=== PATIENT | male | born 1985 | race Hispanic/Latino ===

== ENCOUNTER 2018-08-23 23:36 | Emergency (ER) | payer SELFPAY ==
[2018-08-23 23:40] VITALS: BP 149/101; PULSE 79; RESP 16; TEMP 36.1; O2SAT 98; BMI 32.0
--- NOTE | 2018-08-24 00:12 | ED_ITS ---
HPI - URI/Sore Throat General Chief Complaint: Upper Respiratory Symptoms Stated Complaint: Chest pain Time Seen by Provider: 08/24/18 00:11 Source: patient and family Mode of arrival: ambulatory Limitations: language barrier History of Present Illness HPI Narrative: Patient is a 33-year-old male. He does understand [place] and can speak some words however not completely fluent. He is with his cousin who provided translation services. They were both comfortable with this arrangement of conversation. It appears that the patient has been having chest pain and shortness of breath for the past 2 weeks. He has seen his primary provider who prescribed him an albuterol inhaler. He stated that the inhaler has helped somewhat but not completely. He returns today because he has continued symptoms. Related Data Previous Rx's Medication Instructions Recorded lorazepam [Ativan] 0.5 mg PO BEDTIME PRN #7 tab 08/24/18 prednisone 20 mg PO DAILY 5 Days #5 tab 08/24/18 Allergies Allergy/AdvReac Type Severity Reaction Status Date / Time No Known Drug Allergies Allergy Verified 08/23/18 23:47 Review of Systems Constitutional Denies fever(s) Cardiovascular Reports chest pain and Reports dyspnea Respiratory Reports dyspnea and Denies wheezing Gastrointestinal Gastrointestinal: Denies abdominal pain, Denies nausea and Denies vomiting Musculoskeletal Denies myalgias and Denies arthralgias Integumentary/Breasts Denies rash Hematologic/Lymphatic Denies easy bleeding and Denies easy bruising Allergic/Immunologic Denies wheezing [facility] Medical History Patient denies medical problems (Acute) Surgical History No pertinent past surgical history (Acute) Social History Smoking Status: Never smoker Social History Smoking Status: Never smoker Exam Initial Vital Signs Initial Vital Signs: Vital Signs Temperature 97.0 F L 08/23/18 23:40 Pulse Rate 79 08/23/18 23:40 Respiratory Rate 16 08/23/18 23:40 Blood Pressure 149/101 H 08/23/18 23:40 Pulse Oximetry 98 08/23/18 23:40 Const General: cooperative, comfortable, well developed and No acute distress Orientation: alert and awake [facility] Head: normal to inspection and normocephalic Resp Effort & Inspection: normal respiratory effort Auscultation: clear to auscultation bilaterally Cardio Rate: regular rate Rhythm: regular rhythm Pulses: radial pulses present GI Inspection: non-distended Palpation: soft, No firm and No tender Skin Lesions: no lesions Rashes: no rashes Neuro General: alert and awake Cognition: normal cognition Speech: speech normal Extrem General: normal to inspection and capillary refill normal Psych Appearance: grossly normal and well kempt Course Orders Ordered: ED Orders 08/24/18 00:16 XR chest 2V Stat Discontinued Medications Lorazepam (Ativan) 0.5 mg PO NOW ONE Stop: 08/24/18 01:32 Last Admin: 08/24/18 01:41 Dose: 0.5 mg Vital Signs - 8 hr 08/23/18 23:40 08/24/18 01:49 Temperature 97.0 F L 97.8 F Pulse Rate 79 77 Respiratory Rate 16 18 Blood Pressure 149/101 H 130/86 Pulse Oximetry 98 96 MDM - URI/Sore Throat Imaging Data Chest x-ray: Attestation: I personally reviewed and interpreted this imaging study as follows: My impression: Normal size heart No pneumothorax, no pneumonia MDM Narrative Medical decision making narrative: Patient is not in any respiratory distress. Chest x-ray is unremarkable. Had a discussion with the patient and his cousin. His cousin stated that all of his symptoms started 2 weeks ago. His cousin thinks that his symptoms are a psychological issue. He states the patient has been having problems sleeping recently. All this seems to have started when they found out a good friend of theirs went to [place] and then ?disappeared ?the patient's cousin stated that he thinks that the patient is very concerned about his friend that is what's causing his chest issues and also is sleeping issues. They did ask for medicine to help with this. He was given Ativan here in the emergency department. Will send home with a small prescription for this. Also sent home with prescription for prednisone. Will hold on further workup for now. I the patient follow up with his primary provider. They both expressed understanding and agreement this plan. Discharge Plan Departure Patient Disposition: Home Clinical Impression: Cough, Atypical chest pain Discharge Date/Time: 08/24/18 01:50 Interventions: ED Discharge Assessment Last Done: 08/24/18 01:49 Instructions: Cough Activity Restrictions/Additional Instructions: Recommend you take all other medications as directed. On Saturday contact your primary doctor for a follow-up. Return to the emergency department for any new or worsening symptoms Prescriptions: New prednisone 20 mg tablet 20 mg PO DAILY 5 Days Qty: 5 RF: 0 lorazepam [Ativan] 1 mg tablet 0.5 mg PO BEDTIME PRN (Reason: sleep) Qty: 7 RF: 0
--- NOTE | 2018-08-24 00:16 | DI.RAD.S_ITS ---
PROCEDURE: XR CHEST 2V INDICATIONS: Chest pain TECHNIQUE: 2 views of the chest were acquired. COMPARISON: None. FINDINGS: Surgical changes and devices: None. Lungs and pleura: No focal infiltrates are seen. Apparent calcified granulomas can be seen. No pleural effusions or pneumothorax. Mediastinum: Mediastinal contours are normal. Heart size is normal. Bones and chest wall: No suspicious bony abnormalities. Soft tissues appear unremarkable. IMPRESSION: No acute cardiopulmonary process is seen. Note: No significant discrepancy from the preliminary report. Dictated by: Mikey Zambrano M.D. on 08/24/2018 at 7:42 Approved by: Mikey Zambrano M.D. on 08/24/2018 at 7:42
[2018-08-24] MEDS: LORazepam 0.5 MG TABLET PO (01:41)
[2018-08-24 01:49] VITALS: BP 130/86; PULSE 77; RESP 18; TEMP 36.6; O2SAT 96
== END 2018-08-24 01:50 | disposition home or self-care (01) ==
PROVIDERS: Emergency Provider Emergency Medicine
DX: R05 Cough (principal); R07.89 Other chest pain
CPT/HCPCS: 71046; 99282; 99283